=== PATIENT | male | born 1985 | race Caucasian/White ===

== ENCOUNTER 2016-07-03 12:27 | Emergency (ER) | payer OTHER ==
[~2016-07-03] VITALS: Ht 175.3 cm; Wt 67.5 kg
[~2016-07-03 12:27] MED LIST: DIAZ10TA PO
[2016-07-03 12:33] VITALS: TEMP 36.5; Ht 175.3 cm; Wt 67.5 kg
[2016-07-03] MEDS ORDERED: IBUP-1428 PO (12:55)
[2016-07-03] MEDS ORDERED: PRLSR20 PO (12:55)
[2016-07-03] MEDS ORDERED: GABA800T PO (12:55)
[2016-07-03] MEDS ORDERED: TRAM-10 PO (12:58)
[2016-07-03 13:11] VITALS: BP 140/79; PULSE 90; O2SAT 99
[2016-07-03] MEDS ORDERED: ACET-749 PO (13:12)
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
== END 2016-07-03 13:12 | disposition home or self-care (01) ==
LOC: C.EDB 12:28 → C.EDD 13:12
DX: M54.12 Radiculopathy, cervical region (principal); M50.20 Other cervical disc displacement, unspecified cervical region

== ENCOUNTER 2016-10-27 13:08 | Emergency (ER) | payer OTHER ==
[~2016-10-27] VITALS: Ht 175.3 cm; Wt 64.5 kg
[~2016-10-27 13:08] MED LIST changes: +ACET-749 PO; -DIAZ10TA PO; +GABA800T PO; +IBUP-1428 PO; +PRLSR20 PO
[2016-10-27 13:10] VITALS: TEMP 37.1; Ht 175.3 cm; Wt 64.5 kg
[2016-10-27] MEDS ORDERED: HYDROCODONE/ACETAMOPHEN 5/325MG TAB PO STA (13:26)
--- NOTE | 2016-10-27 13:55 | EMERGENCY ROOM VISIT NOTE ---
ED Visit Note First contact with patient: 13:15 CHIEF COMPLAINT: Right wrist pain HISTORY OF PRESENT ILLNESS: This 30-year-old male presents the ER with chief complaint of right wrist pain that radiates into his thumb. The patient states that he had carpal tunnel surgery performed on August [address] Patel. He had his initial follow-up with Dr. Patel and was given exercises to do. A few days after his follow-up he started getting more severe pain just medial to the thenar eminence and radiation into the thumb. The patient states it hurts to squeeze anything grain picker anything or to move his thumb. Since his surgery his insurance has changed to [employer] under [email or web address]. He called to get an appointment and was told that they did not take his insurance and that he would have to pay a large amount for an office visit. The patient also states he does not have a family physician. He has been taking ibuprofen with Prilosec since he had stomach problems. He states the pain keeps him up at night. REVIEW OF SYSTEMS: 6 system review was performed and was negative unless stated otherwise in history of present illness. PMH: Recent right carpal tunnel surgery, shoulder surgery, appendectomy, Achilles tendon surgery, anxiety SOCIAL HISTORY: Patient lives with his . The patient denies any tobacco or alcohol use. PHYSICAL EXAM: Vital Signs: Were reviewed Reviewed Nurse's notes. GEN.: 30-year -old white male appears in no acute distress. MENTAL Status: Alert and oriented 3. RIGHT WRIST: No gross bony deformity noted. No erythema or edema noted. There is a scar consistent with recent carpal tunnel surgery. The patient has severe tenderness to palpation over the area of the scar. He is unable to oppose his thumb to the third through fifth fingers. Remelter strength is 1 out of 5. EMERGENCY DEPARTMENT COURSE: The patient was evaluated. The patient was given [place] 5/325 mg one tablet by mouth for pain. I spoke with the casey saw operator who is going to contract [facility]. The casey saw operator spoke with [facility] and they are in network with the patient's insurance and therefore she said an appointment for the patient for me fourth at [address] Herr. The patient was informed and was happy with treatment plan. The patient was discharged home in stable condition. DIAGNOSIS: Postop pain right carpal tunnel surgery DISCHARGE INSTRUCTIONS AND TREATMENT: Take [place] as needed for pain. Do not drive while taking the [place]. Follow-up with Dr. Patel on October 29 at 9:20 AM. Problem List Medical Problems: (1) Herniated disc Status: Chronic Surgical Problems: (1) S/P appendectomy Status: Resolved Current/Historical Medications No Active Prescriptions or Reported Meds Allergies Coded Allergies: Diphenhydramine (Unverified Allergy, Unknown, [facility], 10/27/16) Vital Signs Date Time Temp Pulse Resp B/P Pulse Ox O2 Delivery O2 Flow Rate FiO2 10/27/16 13:10 37.1 133 20 133/84 96 Room Air Medications Administered Medications (Trade) Dose Ordered Sig/Humberto Route Start Time Stop Time Status Last Admin Dose Admin Acetaminophen/ Hydrocodone Bitart ([place] 5/325 Tab) 1 tab NOW STAT PO 10/27/16 13:26 10/27/16 13:27 DC 10/27/16 13:36 1 TAB Departure Information Prescriptions No Active Prescriptions or Reported Meds Referrals No Doctor, Assigned (PCP) Patient Instructions [facility]
[2016-10-27] MEDS ORDERED: HYDR-5688 PO (13:56)
[2016-10-27 14:06] VITALS: BP 125/94; PULSE 108; O2SAT 98
[2016-10-27] MEDS ORDERED: GABA-113 PO (22:39)
[2016-10-27] MEDS ORDERED: DIAZ10TA PO (22:39)
[2016-10-28] MEDS ORDERED: OMEP20TA PO (11:11)
== END 2016-10-27 14:10 | disposition home or self-care (01) ==
LOC: C.EDB 13:09 → C.EDD 14:10
DX: G89.18 Other acute postprocedural pain (principal); F41.9 Anxiety disorder, unspecified; Z79.899 Other long term (current) drug therapy

== ENCOUNTER 2016-10-27 22:02 | Inpatient (IN) | payer OTHER ==
[~2016-10-27] VITALS: Ht 175.3 cm; Wt 64.2 kg
[~2016-10-27 22:02] MED LIST changes: +HYDR-5688 PO
[2016-10-27] MEDS ORDERED: DIAZ10TA PO (22:39)
[2016-10-27] MEDS ORDERED: GABA-113 PO (22:39)
[2016-10-27 23:02] LABS: BASO % 0.2 %; BASO ABS # 0.01 K/uL (0-0.2); COMPLETE YES; EOS % 1.1 %; HEMATOCRIT 45.4 % (42-52); IG% 0.2 %; LYMPH % 36.2 %; LYMPH ABS # 2.06 K/uL (1.2-3.4); MEAN CORPUSCULAR HEMOGLOBIN 32.2 pg (25-34); MEAN CORPUSCULAR HGB CONC 36.1 g/dl (32-36); MEAN PLATELET VOLUME 9.3 fL (7.4-10.4); MONO % 9.1 %; NEUT % 53.2 %; PLATELET COUNT 250 K/uL (130-400); WHITE BLOOD COUNT 5.69 K/uL (4.8-10.8)
[2016-10-27 23:03] LABS: URINE APPEARANCE CLEAR (CLEAR); URINE BILIRUBIN NEG (NEG); URINE COLOR DK YELLOW; URINE NITRITE NEG (NEG); URINE PH 5.5 (4.5-7.5); URINE SPECIFIC GRAVITY 1.035 (1.000-1.030); UROBILINOGEN NEG (NEG); ZZUR CULT IF INDIC CLEAN CATCH NO
[2016-10-27 23:09] LABS: MANUAL MICROSCOPIC REQUIRED? NO; REVIEW REQ? NO
[2016-10-27 23:21] LABS: ACETAMINOPHEN 20 ug/ml (10-30)
[2016-10-27 23:22] LABS: BUN/CREATININE RATIO 9.8 (10-20); CALCIUM 9.4 mg/dl (8.5-10.1); CREATININE 1.4 mg/dl (0.60-1.40)
[2016-10-27 23:33] LABS: ALB/GLOB RATIO 1.9 (0.9-2); THYROID STIMULATING HORMONE 8.96 uIu/ml (0.300-4.500)
[2016-10-27 23:34] LABS: BENZODIAZEPINE, URINE POS (NEG); COCAINE,URINE NEG (NEG); PHENCYCLIDINE, URINE NEG (NEG)
--- NOTE | 2016-10-27 23:56 | EMERGENCY ROOM VISIT NOTE ---
History Report prepared by Simona: Michelle Newsome Under the Supervision of: Dr. Adolfo Hilliard M.D. First contact with patient: 22:58 Chief Complaint: MENTAL HEALTH EVALUATION Stated Complaint: NERVOUS BREAKDOWN,SELF-HARMING History of Present Illness The patient is a 30 year old male who presents to the Emergency Room with complaints of persistent suicidal ideation starting a few days ago. He reports that his symptoms started after he was arrested in [place] and an ankle monitor was placed. He had informed the police prior to coming to [place]. The patient also complains of anxiety and depression. He has a history of anxiety but denies any prior diagnosis of depression. The patient has been cutting himself on the lower lip. He denies cutting himself anywhere else. He denies any specific plans to commit suicide. He denies any history of suicide attempts. He states that he "just want it to end" and states that "it would be better if I was not here". The patient denies any drug or alcohol use. He denies taking any medications prior to coming to the Emergency Room. He was evaluated in the Emergency Room earlier today and received a [place]. The patient denies fevers, chills, or any other complaints. Source of History: patient Onset: a few days ago Position: other (global) Quality: other (suicidal ideation) Timing: other (persistent) Associated Symptoms: No chills, No fevers Review of Systems See HPI for pertinent positives & negatives. A total of 10 systems reviewed and were otherwise negative. Past Medical & Surgical Medical Problems: (1) Herniated disc Surgical Problems: (1) S/P appendectomy Family History No pertinent family history Social History Smoking Status: Never Smoker Marital Status: Housing Status: lives with significant other Occupation Status: employed Current/Historical Medications Scheduled Gabapentin (Neurontin), 300 MG PO TID Scheduled PRN Diazepam (Valium), 10 MG PO Q8 PRN for prn Allergies Coded Allergies: Diphenhydramine (Unverified Allergy, Unknown, [facility], 10/27/16) Physical Exam Vital Signs Date Time Temp Pulse Resp B/P Pulse Ox O2 Delivery O2 Flow Rate FiO2 10/27/16 22:07 36.6 85 20 141/80 97 Room Air Physical Exam GENERAL: Patient is mildly anxious though sedated appearing. HEENT: No acute trauma, normocephalic atraumatic, mucous membranes moist, no nasal congestion, no scleral icterus. Scabbed over cut of the mid lower lip. NECK: No stridor, no adenopathy, no meningismus, trachea is midline. LUNGS: No dyspnea. Clear to auscultation and equal bilaterally. No wheeze, no rhonchi. HEART: Regular rate and rhythm. No murmurs, rubs, gallops appreciated. ABDOMEN: Soft, nontender, bowel sounds positive, no masses appreciated, no peritonitis. BACK: No midline tenderness, no CVA tenderness EXTREMITIES: Normal motion all extremities, no cyanosis, no edema. Right ankle monitor. NEUROLOGIC: Alert and oriented, no acute motor or sensory deficits, no focal weakness, cranial nerves grossly intact. PSYCHIATRIC: Patient admits to depression, anxiety, and suicidal ideation without specific plan. SKIN: No rash, no jaundice, no diaphoresis. Sunburn of face. Tattoos of forearms and back. Medical Decision & Procedures Laboratory Results 10/27/16 22:40 Red Blood Count 5.10, Mean Corpuscular Volume 89.0, Mean Corpuscular Hemoglobin 32.2, Mean Corpuscular Hemoglobin Concent 36.1, Mean Platelet Volume 9.3, Neutrophils (%) (Auto) 53.2, Lymphocytes (%) (Auto) 36.2, Monocytes (%) (Auto) 9.1, Eosinophils (%) (Auto) 1.1, Basophils (%) (Auto) 0.2, Neutrophils # (Auto) 3.03, Lymphocytes # (Auto) 2.06, Monocytes # (Auto) 0.52, Eosinophils # (Auto) 0.06, Basophils # (Auto) 0.01 10/27/16 22:40 Test 10/27/16 22:30 10/27/16 22:40 Urine Color DK YELLOW Urine Appearance CLEAR (CLEAR) Urine pH 5.5 (4.5-7.5) Urine Specific [place] 1.035 (1.000-1.030) Urine Protein NEG (NEG) Urine Glucose (UA) NEG (NEG) Urine Ketones TRACE (NEG) Urine Occult Blood NEG (NEG) Urine Nitrite NEG (NEG) Urine Bilirubin NEG (NEG) Urine Urobilinogen NEG (NEG) Urine Leukocyte Esterase NEG (NEG) Urine Opiates Screen POS (NEG) Urine Methadone, Qualitative NEG (NEG) Urine Barbiturates NEG (NEG) Urine Phencyclidine (PCP) Level NEG (NEG) Ur Amphetamine/Methamphetamine NEG (NEG) MDMA (Ecstasy) Screen NEG (NEG) Urine Benzodiazepines Screen POS (NEG) Urine Cocaine Metabolite NEG (NEG) Urine Marijuana (THC) NEG (NEG) White Blood Count 5.69 K/uL (4.8-10.8) Red Blood Count 5.10 M/uL (4.7-6.1) Hemoglobin 16.4 g/dL (14.0-18.0) Hematocrit 45.4 % (42-52) Mean Corpuscular Volume 89.0 fL (80-100) Mean Corpuscular Hemoglobin 32.2 pg (25-34) Mean Corpuscular Hemoglobin Concent 36.1 g/dl (32-36) Platelet Count 250 K/uL (130-400) Mean Platelet Volume 9.3 fL (7.4-10.4) Neutrophils (%) (Auto) 53.2 % Lymphocytes (%) (Auto) 36.2 % Monocytes (%) (Auto) 9.1 % Eosinophils (%) (Auto) 1.1 % Basophils (%) (Auto) 0.2 % Neutrophils # (Auto) 3.03 K/uL (1.4-6.5) Lymphocytes # (Auto) 2.06 K/uL (1.2-3.4) Monocytes # (Auto) 0.52 K/uL (0.11-0.59) Eosinophils # (Auto) 0.06 K/uL (0-0.5) Basophils # (Auto) 0.01 K/uL (0-0.2) RDW Standard Deviation 41.5 fL (36.4-46.3) RDW Coefficient of Variation 12.9 % (11.5-14.5) Immature Granulocyte % (Auto) 0.2 % Immature Granulocyte # (Auto) 0.01 K/uL (0.00-0.02) Anion Gap 8.0 mmol/L (3-11) Est Creatinine Clear Calc Drug Dose 70.7 ml/min Estimated GFR () 78.1 Estimated GFR (Non- 67.4 BUN/Creatinine Ratio 9.8 (10-20) Calcium Level 9.4 mg/dl (8.5-10.1) Total Bilirubin 1.0 mg/dl (0.2-1) Aspartate Amino Transf (AST/SGOT) 14 U/L (15-37) Alanine Aminotransferase (ALT/SGPT) 21 U/L (12-78) Alkaline Phosphatase 70 U/L (45-117) Total Protein 8.0 gm/dl (6.4-8.2) Albumin 5.2 gm/dl (3.4-5.0) Globulin 2.8 gm/dl (2.5-4.0) Albumin/Globulin Ratio 1.9 (0.9-2) Thyroid Stimulating Hormone (TSH) 8.960 uIu/ml (0.300-4.500) Salicylates Level < 1.7 mg/dl (2.8-20) Acetaminophen Level 20 ug/ml (10-30) Ethyl Alcohol mg/dL < 3.0 mg/dl (0-3) Laboratory results as reviewed by me. ED Course 2258: The patient was evaluated in room A05. A complete history and physical exam was performed. 1156: I reevaluated the patient who is resting comfortably. He admits to taking Valium. Awaiting [facility] evaluation. 1210: [facility] is evaluating the patient. 1258: Upon reevaluation, the patient is resting comfortably. Discussed results and treatment plan with the patient. He verbalized understanding and agreement with the treatment plan. A decision for inpatient voluntary admission was made. 201 paperwork was signed. The patient will be evaluated for further management by [address] [place] [id number]. Medical Decision Differential: Mood Disorder, Overdose, Infectious, Electrolyte Abnormality, Cardiac, Hepatic, Endocrine, Toxicologic, Neurologic, amongst other pathologies entertained. PDMP: He has multiple narcotic prescriptions over the last few months including 10 [place] from today. 30 yr old male arrives with complaint of suicidal ideation, depression and anxiety. Notes unable to cope with this as outpatient and requesting mental health evaluation. Medically clear and after re-discussing with patient he admits [place] and Valium use in last 24 hours. Tyl level wnl consistent with norco use. He is at risk of harm to self and has already been cutting his lip as outpatient with a knife. [address] to evaluate and agree with 201 admit to their facility. Medically clear and stable. Mild TSH elevation with normal T4. [place] Drug Monitoring Program Search Results: patient reviewed within database Impression Primary Impression: Suicidal ideation Additional Impression: Depression Scribe Attestation The scribe's documentation has been prepared under my direction and personally reviewed by me in its entirety. I confirm that the note above accurately reflects all work, treatment, procedures, and medical decision making performed by me. Departure Information Dispostion Mental Health Acute Care Referrals No Doctor, Assigned (PCP) Patient Instructions [facility] Problem Qualifiers Additional Impression: Depression Depression Type: major depressive disorder Major depression recurrence: single episode Active/Remission status: currently active Major depression episode severity: moderate Qualified Codes: F32.1 - Major depressive disorder , single episode, moderate
[2016-10-28] VITALS (7 sets, daily range): BP systolic 115–135; BP diastolic 75–110; PULSE 82–109; TEMP 36.4–37; O2SAT 99; BMI 20.2
[2016-10-28] MEDS ORDERED: NURSING VERBAL MED ORDER ONE ×2 (01:00→18:30)
[2016-10-28] MEDS ORDERED: MAGNESIUM HYDROXIDE SUSP 30 ML UDC PO PRN (01:30)
[2016-10-28] MEDS ORDERED: SODIUM CHLORIDE 0.65% NA SOLN 45 ML (OCEAN) PRN (01:30)
[2016-10-28] MEDS ORDERED: BISMUTH SUBSALICYLATE PER ML OMNICELL CHARGE PO PRN (01:30)
[2016-10-28] MEDS ORDERED: hydrOXYzine HCL 25 MG TAB PO PRN (01:30)
[2016-10-28] MEDS ORDERED: ALUMINUM/MAGNESIUM SUSP 30 ML UDC PO PRN (01:30)
--- NOTE | 2016-10-28 08:23 | Psychiatric History & Physical ---
History Date of Service October 28, 2016. Identifying Data Kaur Mejias is a 30-year-old male who currently lives in [place] with his , has a history of substance abuse with [place] arrests for drug possession and DUI, untreated anxiety and depression, and was admitted voluntarily after presented to the emergency room for suicidal ideation and self injury by cutting his lip with a knife. Information from the patient is not considered to be reliable. Chief Complaint "I've been suffering from debilitating anxiety for a few years, it's been getting worse as I got older, and yesterday I had a nervous breakdown". History of Present Illness Per review of records, the patient has been seen in our ER several times since moving here in March, for syncope, AMS and pain. On 04/18/17 he was seen for AMS, had been stumbling around the house, was incoherent, having syncopal episodes and weakness, and had been seen at a local urgent care and the emergency room the day prior for the same issue. His drug screen was positive for benzodiazepines, and it was felt that he was intoxicated and recommendations were for admission, but he left the hospital. On his last 2 emergency room visits in June and 10/27/2016, he presented requesting pain medication. He then represented the following day, 10/28/2016, with suicidal ideation after he was pulled over by police, whom he said suspected he was driving under the influence. He changes his story several times about the events that occurred on the day of admission. He initially states that he had a flat tire, and that a police radio dispatcher stopped to help him and "accused me of peeing myself and threatened to arrest me." He then stated that he had spilled some Gatorade on his pants, but that the rn endoscopy thought that he had urinated. He said he then "dissociated, I was suicidal, I just needed it to stop." When asked to explain further, he states that he had pulled over because he spilled Gatorade on his pants and was trying to clean it up, and that a rn endoscopy then "came up behind me, claimed I was drunk and peed my pants." He says he passed the field sobriety test, and the rn endoscopy then called him a total truck and gave him a ride home. He is angry at the police radio dispatcher, stating that he assumed the patient was drunk and "I don't drink at all!" He admits he was taking Valium up to 20mg a day and driving. He says officer told him that he did not catch him this time, but would catch him the next time. When he arrived home, his was there, and he "had a nervous breakdown, it was the last straw. I told my I just can't take this anymore, I work really hard and never get a break." He states that he made multiple suicidal statements, and then picked up a knife that he keeps on his bedside table "in case of a burglar" and used it to cut his lip. He says "it felt good, I like the taste of blood." His then came in the room and saw what he had done, and brought him to the emergency room. He endorses recent stressors of financial problems, not having outpatient mental health care, and says his family "doesn't believe in mental health issues." He states he has been trying to get outpatient mental health services, but has not been able to as his insurance does not cover it, but when asked how he knows this, says he never actually checked with his insurance and "just assumed." He says he makes too much money to be seen at [facility], and can't afford to pay out of pocket for mental health services. He reports a long history since age 15, with chronic worry "about everything," which interferes with his ability to function. He has had daily physical symptoms of anxiety, describes waking up with a "wave of anxiety," at times will hyperventilate, can' t catch his breath, and sweats profusely. Because of his anxiety, he says he "never feels comfortable or confidence." He doesn't feel comfortable leaving the house, so has not been able to do the things he needs to do, and says he just "lies on the couch all day reading." Versus symptoms of depression, including low mood, decreased motivation, decreased energy, and disrupted sleep. He has difficulty both falling and staying asleep, feels he only gets 15 -45 minutes of sleep at a time, and never feels rested. He enjoys exercising, hiking, biking, yoga, and horseback riding. He denies any history of symptoms consistent with endy. 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 He denies symptoms of thought disorder. He denies that he wants to end his life, but does not feel able to go on in his current state. It is very difficult to clarify his benzodiazepine use. He initially states that he has been taking Valium 10 mg twice a day from a physician in [place] and has been on this for months, but then says that he last filled the prescription 6-7 weeks ago, which was only for a one-month supply, so it is not clear how he still has access to this medication. When asked how he still has some left, he states he took himself off of it for a while. He initially denied taking any other benzodiazepines since high school, but when asked about his emergency room visit for DUI arrest on 07/10/2016 which showed both alprazolam and diazepam in his system, he states that he was tapering from one to the other at that time. He also endorses stressors related to his legal issues, which he was not initially forthcoming about. He states he was arrested in [place] almost 2 years ago and charged with possession of controlled substance for prescription medications, which he claims he had prescriptions for, and placed on probation for which he has to wear an ankle bracelet. He initially denied any other history of arrests, and when asked about his DUI from earlier this year, became angry, insisting that it was not a DUI because he was taking prescription medications, and then demanded to leave. He was very resistant to suggestions that he may have a substance abuse problem. He specifically denied when asked if he had been using other benzodiazepines or more than what he had initially reported, and explains that he needs to be forthcoming with his substance use so that we can treat him for any potential withdrawal syndrome. Past Psychiatric History Current OP Treatment: no current treatment Prior OP Treatment: psychiatrist (in middle school diagnosed with anxiety disorder), therapist (years ago) Prior Psych Hospitalizations: none Access to a Gun: No Suicide Attempts: No Past Medication Trials escitalopram - 10mg was ineffective sertraline - 50mg? caused constipation alprazolam as needed in high school diazepam prn 2 years ago after back injury for anxiety and muscle spasms Additional Notes The patient states he is getting Valium from Dr. Eduardo Goodwin in [place]. Past Medical/Surgical History (1) Carpal tunnel syndrome (2) Back fracture s/p carpal tunnel release on right wrist 08/25/16 at [facility] Allergies Allergies: Coded Allergies: Diphenhydramine (Unverified Allergy, Unknown, MANIAC, 10/27/16) Home Medications Scheduled Gabapentin (Neurontin), 300 MG PO TID Omeprazole (Omeprazole), 1 TAB PO DAILY Scheduled PRN Diazepam (Valium), 10 MG PO Q8 PRN for prn Family History No pertinent family history History of Suicide: No History of Substance Abuse: No Psychiatric History: Yes (maternal uncle with anxiety) Alcohol Use Alcohol Use In Past 12 Months: No AUDIT Total Score: 0 Smoking Use Smoking Status: Never Smoker Substance History Patient denies ever using illicit drugs, however he was arrested in [place] for possession of marijuana. He denies abusing prescription medications, although records indicate he has come to the emergency room multiple times requesting pain medication, has been arrested for DUI due to his use of controlled substances, and was seen in the emergency room for altered mental status due to benzodiazepine intoxication. Personal History Lives in: [place] with Childhood: Raised in [place] by both parents. They are now and live in [place]. 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 Relationship History: (x 1 year) Children: None Spiritual Affiliation: Rastafari Legal History: reported (arrested for felony possession of prescription medication/controlled substances in [place] about 2 years ago, and on probation until 03/2017) Psychological Trauma History: Other (None) Review of Systems chronic back and wrist pain. 10 systems reviewed and others negative except as stated above. Examination Physical Examination Physical exam performed in the emergency room was reviewed and accepted for the purposes of this admission. Vital Signs Vital Signs Past 12 Hours Date Time Temp Pulse Resp B/P Pulse Ox O2 Delivery O2 Flow Rate FiO2 10/28/16 06:45 36.4 83 16 119/75 125/85 10/28/16 01:15 36.6 82 16 132/95 10/28/16 01:11 80 16 132/95 99 10/27/16 22:07 36.6 85 20 141/80 97 Room Air Laboratory Results Last 24 Hours Test 10/27/16 22:30 10/27/16 22:40 Urine Color DK YELLOW Urine Appearance CLEAR Urine pH 5.5 Urine Specific [place] 1.035 Urine Protein NEG Urine Glucose (UA) NEG Urine Ketones TRACE Urine Occult Blood NEG Urine Nitrite NEG Urine Bilirubin NEG Urine Urobilinogen NEG Urine Leukocyte Esterase NEG Urine Opiates Screen POS Urine Methadone, Qualitative NEG Urine Barbiturates NEG Urine Phencyclidine (PCP) Level NEG Ur Amphetamine/Methamphetamine NEG MDMA (Ecstasy) Screen NEG Urine Benzodiazepines Screen POS Urine Cocaine Metabolite NEG Urine Marijuana (THC) NEG White Blood Count 5.69 K/uL Red Blood Count 5.10 M/uL Hemoglobin 16.4 g/dL Hematocrit 45.4 % Mean Corpuscular Volume 89.0 fL Mean Corpuscular Hemoglobin 32.2 pg Mean Corpuscular Hemoglobin Concent 36.1 g/dl Platelet Count 250 K/uL Mean Platelet Volume 9.3 fL Neutrophils (%) (Auto) 53.2 % Lymphocytes (%) (Auto) 36.2 % Monocytes (%) (Auto) 9.1 % Eosinophils (%) (Auto) 1.1 % Basophils (%) (Auto) 0.2 % Neutrophils # (Auto) 3.03 K/uL Lymphocytes # (Auto) 2.06 K/uL Monocytes # (Auto) 0.52 K/uL Eosinophils # (Auto) 0.06 K/uL Basophils # (Auto) 0.01 K/uL RDW Standard Deviation 41.5 fL RDW Coefficient of Variation 12.9 % Immature Granulocyte % (Auto) 0.2 % Immature Granulocyte # (Auto) 0.01 K/uL Sodium Level 142 mmol/L Potassium Level 4.0 mmol/L Chloride Level 102 mmol/L Carbon Dioxide Level 32 mmol/L Anion Gap 8.0 mmol/L Blood Urea Nitrogen 14 mg/dl Creatinine 1.40 mg/dl Est Creatinine Clear Calc Drug Dose 70.7 ml/min Estimated GFR () 78.1 Estimated GFR (Non- 67.4 BUN/Creatinine Ratio 9.8 Random Glucose 71 mg/dl Calcium Level 9.4 mg/dl Total Bilirubin 1.0 mg/dl Aspartate Amino Transf (AST/SGOT) 14 U/L Alanine Aminotransferase (ALT/SGPT) 21 U/L Alkaline Phosphatase 70 U/L Total Protein 8.0 gm/dl Albumin 5.2 gm/dl Globulin 2.8 gm/dl Albumin/Globulin Ratio 1.9 Thyroid Stimulating Hormone (TSH) 8.960 uIu/ml Salicylates Level < 1.7 mg/dl Acetaminophen Level 20 ug/ml Ethyl Alcohol mg/dL < 3.0 mg/dl Mental Examination During interview pt is: alert and oriented, other (patient gives inconsistent and conflicting reports, changing his story, and is not reliable) Appearance: appropriately dressed, appropriately groomed Eye contact is: fair Motor behavior is: steady gait & station, no abnormal motor movements Speech: normal in rate, rhythm & volume Affect: anxious Mood is: anxious Thought process: circumstantial Thought content: cognitive distortions (minimizes role of substances) Suicidal thought are: denied (but admits to cutting self yesterday and SI) Homicidal thoughts are: denied Hallucinations: denies auditory, denies visual Cognition: memory grossly intact, attention grossly intact, language grossly intact Intelligence estimated to be: average Insight: impaired Judgement: severely impaired Impression / Recommendations Impression 30-year-old white male with a history of depression and anxiety as well as concerns for prescription medication abuse who presents after an episode with police, who per his report suspected he was driving under the influence, which resulted in worsening anxiety and suicidal ideation with self injury by cutting his lip. He was not forthcoming with respect to his multiple criminal charges for possession of controlled substances and a DUI arrest in June of this year for controlled substance use, and I suspect he is minimizing the extent of his use. We will need to get collateral information from his and outpatient prescribers, monitor him for withdrawal, and will start treatment for his mood and anxiety disorders. Inventory Assets Strengths: , employed, stable housing Risk Factors Assessment Male: Yes : Yes /single/: No Access to guns: No Health problems: Yes Mental Health Diagnoses: Yes Substance use disorders: Yes Previous attempt: No Previous psychiatric stay: No Hopelessness: Yes Smoker: No Protective Factors Assessment : Yes Responsible for young children: No Employed: Yes Stable relationships: Yes Supportive family: No Good rapport with provider: No Recommendations (1) Suicidal ideation Every 15 minute checks for safety Work on healthy coping skills and discharge safety plan Would advise that he not of access to controlled substances given his addictions issues, and that all medications in the home be locked Would recommend that he not drive, given his multiple presentations with altered mental status and DUI. 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 (2) Panic disorder with agoraphobia We discussed first line treatment, which is an SSRI antidepressant, and he requested something with a low risk of sexual dysfunction, so opted for fluoxetine. Start 20 mg daily, and titrate upwards as tolerated. He had been on gabapentin as an outpatient, which is a good choice given his addictions issues. We can resume his home dose once he has completed the gabapentin withdrawal protocol. (3) Depression Start fluoxetine as above. Educate the patient about his diagnoses and the recommended treatment. Refer for outpatient psychiatric follow-up and therapy. (4) Benzodiazepine dependence There are many red flags for misuse of prescription medications, including multiple arrests in criminal charges (felony possession, possession of marijuana , and a recent DUI while on prescription medications), an emergency room visit for altered mental status thought to be due to benzodiazepine intoxication, and his lack of honesty about these issues. I strongly suspect he is minimizing his substance use, but even if he is taking the diazepam as prescribed, it is not a good choice for him given his DUI, episodes of altered mental status, and ongoing severe anxiety. We will therefore taper off of it while here, by decreasing to 5 mg twice a day and initiating AWSS protocol. Would recommend the patient not drive until he is tapered off of benzodiazepines and all other controlled substances. (5) Back fracture Patient reports a history of back injury, will request records from his PCP, Dr. Eduardo Goodwin in [place], who is prescribing benzodiazepines. Nursing has are to contact his office to confirm the diazepam dose, and inform them of his admission. We will need to coordinate care with him prior to discharge. Referral for local PCP. (6) Carpal tunnel syndrome Coordinate care with Dr. Patel, the orthopedist to performed his procedure. The patient states he is planning to follow up with him, as he continues to have pain. Called his office and spoke with his nurse, who states they last prescribed hydrocodone/acetaminophen at the beginning of August. CPT Code Initial Hospital Care: 54353 Problem Qualifiers (1) Depression: Depression Type: major depressive disorder Major depression recurrence: single episode Active/Remission status: currently active Major depression episode severity: severe Psychotic features: without psychotic features Qualified Codes: F32.2 - Major depressive disorder, single episode, severe without psychotic features
[2016-10-28] MEDS: hydrOXYzine HCL 25 MG TAB PO PRN ×2 (10:41→15:12)
[2016-10-28] MEDS ORDERED: OMEP20TA PO (11:11)
[2016-10-28] MEDS ORDERED: FLUOXETINE HCL 20 MG CAP PO ONE (12:00)
[2016-10-28] MEDS ORDERED: LORAZEPAM 1 MG TAB PO PRN (13:15)
[2016-10-28] MEDS ORDERED: GABAPENTIN 600 MG TAB PO ONE (14:00)
[2016-10-28] MEDS ORDERED: GABAPENTIN 300 MG CAP PO SCH (14:00)
[2016-10-28] MEDS: ACETAMINOPHEN 325 MG TAB PO PRN (15:13)
--- NOTE | 2016-10-28 18:32 | Psych Management Progress Note ---
Psychiatry Miscellaneous Date of Service: October 28, 2016. etl consultant provider contacted re: slurring of speech, unsteady gait "loopiness" . 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 Ordered on admission since not immune mediated allergy and preferred over controlled substance prn. Reviewed that also received loading dose of Neurontin this pm according to hospital withdrawal protocol and ordered benzo taper. Directed staff to repeat urine tox and check room as substance abuse hx. Gluc check and O2 sat in addition to orthostatic vitals. Reviewed med orders for hs. Will hold Valium tonight. D/C Vistaril. Falls precautions until resolves.
[2016-10-28 19:14] LABS: BENZODIAZEPINE, URINE POS (NEG); COCAINE,URINE NEG (NEG); PHENCYCLIDINE, URINE NEG (NEG)
[2016-10-28] MEDS: GABAPENTIN 600 MG TAB PO SCH (20:43)
[2016-10-28] MEDS: IBUPROFEN 800 MG TAB PO PRN (20:53)
[2016-10-28] MEDS ORDERED: DIAZEPAM 5MG TAB PO SCH (22:00)
[2016-10-29] VITALS (8 sets, daily range): BP systolic 123–163; BP diastolic 78–107; PULSE 69–115; TEMP 36.5–37.5; Ht 175.3 cm; Wt 64.2 kg
[2016-10-29] MEDS: GABAPENTIN 600 MG TAB PO SCH ×3 (06:04→21:14)
[2016-10-29] MEDS ORDERED: LORAZEPAM 1 MG TAB PO PRN (08:00)
[2016-10-29] MEDS: PANTOprazole SOD 40 MG TAB PO SCH (08:04)
[2016-10-29] MEDS: FLUOXETINE HCL 20 MG CAP PO SCH (08:04)
[2016-10-29] MEDS: ACETAMINOPHEN 325 MG TAB PO PRN ×2 (08:06→18:21)
[2016-10-29] MEDS ORDERED: PANTOprazole SOD 40 MG TAB PO SCH (09:00)
[2016-10-29] MEDS: LORAZEPAM 1 MG TAB PO PRN ×5 (09:49→18:21)
--- NOTE | 2016-10-29 10:30 | Psychiatric Progress Notes ---
Psychiatric Progress Note Date of Service October 29, 2016. Notes Return phone call from patient's orthopedist, Marylou Laguerre. She states patient did not follow up after his carpal tunnel surgery as recommended, but did call in multiple times requesting additional opiate pain meds. They do not plan on prescribing further opiates or other controlled substances. He missed his appointment with them today so it will need to be rescheduled prior to discharge.
--- NOTE | 2016-10-29 10:36 | Psychiatric Progress Notes ---
Progress Note Date of Service October 29, 2016. Interval History 30 yo male admitted voluntarily on 10/28/16 with depression, anxiety and suicidal ideation in the context of chronic mental illness and substance abuse Chief Complaint "Not very good. ". Subjective Patient was seen & assessed interval progress reviewed with Treatment Team. The patient says that he does not feel well today with chills having kept him up last night. He also had one episode of visual disturbance this AM, thinking that he saw that chair move. Her mood is "not very good" because he feels unwell physically. he has scored 3 times on the AWSS, requiring ativan. Last evening staff observed him to be appearing altered, with slurred speech after receiving prn vistaril for anxiety. He talks about his history with anxiety, saying that there are times when he is so anxious that he doesn't want to leave the house. He feels that his doesn't understand this because "She's an overachiever" and doesn't let anything slow her down. He has an uncle who he describes as agoraphobic, unable even to attend their wedding a year ago. He denies SI today, but reports racing worried thoughts He denies using any opiates that were not prescribed, and says that he was taking 20 mg Valium daily and occasionally and extra 10 mg pill if he was having a bad day. Review of Systems Constitutional: + chills, + fatigue ENT: No dental problems, No hearing loss, No nasal symptoms, No problem reported, No sore throat, No tinnitus, No trouble swallowing, No unusual epistaxis Respiratory: No cough, No dyspnea at rest, No dyspnea on exertion, No hemoptysis, No problem reported, No shortness of breath, No sputum, No wheezing Cardiovascular: No PND, No chest pain, No claudication, No edema, No orthopnea , No palpitations, No problem reported Abdomen: No GI bleeding, No constipation, No diarrhea, No nausea, No pain, No problem reported, No vomiting Musculoskeletal: No calf pain, No joint pain, No muscle pain, No problem reported, No swelling Neurologic: No balance problems, No memory loss, No numbness/tingling, No paralysis, No problem reported, No vertigo, No weakness Psychiatric: + anxiety, + depression symptoms, + insomnia Integumentary: No bleeding, No color change, No itch, No new/changing skin lesions, No problem reported, No rash Sleep Information Total Hours of Sleep: 8.00 Meal Information Percent of Breakfast Consumed: 70 Percent of Lunch Consumed: 0 Percent of Dinner Consumed: 100 Mental Status Exam During interview pt is: alert and oriented, cooperative Appearance: appropriately dressed, appropriately groomed Eye contact is: good Motor behavior is: steady gait & station, no abnormal motor movements Speech: normal in rate, rhythm & volume Affect: anxious Mood is: depressed, anxious Thought process: goal directed Thought content: cognitive distortions (minimizes role of substances), reality based without delusions Suicidal thought are: denied Homicidal thoughts are: denied Hallucinations: denies auditory, denies visual Cognition: memory grossly intact, attention grossly intact, language grossly intact Intelligence estimated to be: average Insight: impaired Judgement: severely impaired Impression Kaur is adjusting to the unit. He remains depressed and anxious and appears to be going through withdrawal from Benzo's and likely opiates. Valium DC'd last night due to appearing altered, and in view of hx of DUI appearing altered on valium, will switch to Klonopin 1 mg. BID with intended taper. Dr. Morales has been in contact with her orthopedic providers who confirm that he has frequently called their office for more pain meds and they will now flag his chart. He is not to the point of admitting that he has a problem, but we will work with him on this. He is tolerating the prozac without side effect and so will continue current dose. Family meeting is schedule with his today. Plan (1) Suicidal ideation Every 15 minute checks for safety Work on healthy coping skills and discharge safety plan Would advise that he not of access to controlled substances given his addictions issues, and that all medications in the home be locked Would recommend that he not drive, given his multiple presentations with altered mental status and DUI. 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 (2) Panic disorder with agoraphobia We discussed first line treatment, which is an SSRI antidepressant, and he requested something with a low risk of sexual dysfunction, so opted for fluoxetine. Start 20 mg daily, and titrate upwards as tolerated. He had been on gabapentin as an outpatient, which is a good choice given his addictions issues. We can resume his home dose once he has completed the gabapentin withdrawal protocol. (3) Depression Start fluoxetine as above. Educate the patient about his diagnoses and the recommended treatment. Refer for outpatient psychiatric follow-up and therapy. 10/29 - Continue prozac - Family meeting with by phone today - Assist the patient to learn and utilize additional healthy coping strategies (4) Benzodiazepine dependence There are many red flags for misuse of prescription medications, including multiple arrests in criminal charges (felony possession, possession of marijuana , and a recent DUI while on prescription medications), an emergency room visit for altered mental status thought to be due to benzodiazepine intoxication, and his lack of honesty about these issues. I strongly suspect he is minimizing his substance use, but even if he is taking the diazepam as prescribed, it is not a good choice for him given his DUI, episodes of altered mental status, and ongoing severe anxiety. We will therefore taper off of it while here, by decreasing to 5 mg twice a day and initiating AWSS protocol. Would recommend the patient not drive until he is tapered off of benzodiazepines and all other controlled substances. 10/29 - Continue AWSS - Cross taper to Klonopin 1 mg. BID to prevent withdrawal seizures, with intent to taper off. - Will need to coordinate with all prescribers who have been providing controlled substances due to his hx of DUI's and impairment (5) Back fracture Patient reports a history of back injury, will request records from his PCP, Dr. Eduardo Goodwin in [place], who is prescribing benzodiazepines. Nursing has are to contact his office to confirm the diazepam dose, and inform them of his admission. We will need to coordinate care with him prior to discharge. Referral for local PCP. (6) Carpal tunnel syndrome Coordinate care with Dr. Patel, the orthopedist to performed his procedure. The patient states he is planning to follow up with him, as he continues to have pain. Called his office and spoke with his nurse, who states they last prescribed hydrocodone/acetaminophen at the beginning of August. Discharge / Aftercare Planning Therapist: Name: michael Head Of Academic Technology: Name: michael Visit Code E&M Code: 37756 Inventory Assets Strengths: , employed, stable housing Risk Factors Assessment Male: Yes : Yes /single/: No Health problems: Yes Mental Health Diagnoses: Yes Substance use disorders: Yes Previous attempt: No Previous psychiatric stay: No Hopelessness: Yes Smoker: No Protective Factors Assessment : Yes Responsible for young children: No Employed: Yes Stable relationships: Yes Supportive family: No Good rapport with provider: No Data Vital Signs Last 24 Hrs: Date Time Temp Pulse Resp B/P Pulse Ox O2 Delivery O2 Flow Rate FiO2 10/29/16 09:07 36.8 73 18 134/94 69 10/29/16 06:52 36.8 73 18 123/78 69 134/94 10/28/16 20:49 36.9 102 16 135/110 10/28/16 18:18 90 16 131/87 10/28/16 17:13 36.9 106 16 115/80 10/28/16 13:49 37.0 109 18 121/89 Meds Administered Last 24 Hrs: Meds Administered (Past 24Hrs) Medications (Trade) Dose Ordered Sig/Humberto Route Start Time Stop Time Status Last Admin Dose Admin Acetaminophen (Tylenol Tab) 650 mg Q4H PRN PO 10/28/16 01:30 11/27/16 01:29 10/29/16 08:06 650 MG Al Hydroxide/Mg Hydroxide (Maalox Susp) 30 ml Q4H PRN PO 10/28/16 01:30 11/27/16 01:29 10/28/16 20:52 30 ML Hydroxyzine HCl (Vistaril Tab) 50 mg HSZ PRN PO 10/28/16 01:30 10/28/16 18:26 DC 10/28/16 01:43 50 MG Hydroxyzine HCl (Vistaril Tab) 25 mg Q4H PRN PO 10/28/16 01:30 10/28/16 18:26 DC 10/28/16 15:12 25 MG Gabapentin (Neurontin Cap) 300 mg TID PO 10/28/16 14:00 10/28/16 14:00 DC 10/28/16 12:40 300 MG Ibuprofen (Motrin Tab) 800 mg TID PRN PO 10/28/16 11:15 11/27/16 11:14 10/28/16 20:53 800 MG Fluoxetine HCl (Prozac Cap) 20 mg QAM PO 10/29/16 09:00 11/28/16 08:59 10/29/16 08:04 20 MG Fluoxetine HCl (Prozac Cap) 20 mg 1200 ONCE PO 10/28/16 12:00 10/28/16 12:01 DC 10/28/16 12:06 20 MG Lorazepam (Ativan Tab) 1 mg ONE PRN PO 10/28/16 13:15 10/28/16 20:53 DC 10/28/16 20:52 1 MG Gabapentin (Neurontin Tab) 1,200 mg 1400 ONCE PO 10/28/16 14:00 10/28/16 14:01 DC 10/28/16 14:18 1,200 MG Gabapentin (Neurontin Tab) 600 mg 0600,2000 PO 10/28/16 20:00 10/29/16 06:01 DC 10/29/16 06:04 600 MG Pantoprazole Sodium (Protonix Tab) 40 mg DAILY PO 10/29/16 09:00 11/28/16 08:59 10/29/16 08:04 40 MG Lorazepam (Ativan Tab) 1 mg ONE PRN PO 10/29/16 08:00 10/29/16 08:03 DC 10/29/16 08:03 1 MG Lorazepam (Ativan Tab) PRN Dosing -Active Protocol UD PRN PO 10/29/16 09:45 11/28/16 09:44 10/29/16 09:49 2 MG Lab Results Last 24 Hrs: Last 24 Hours Test 10/28/16 18:17 10/28/16 18:45 Bedside Glucose 146 mg/dl Urine Opiates Screen POS Urine Methadone, Qualitative NEG Urine Barbiturates NEG Urine Phencyclidine (PCP) Level NEG Ur Amphetamine/Methamphetamine NEG MDMA (Ecstasy) Screen NEG Urine Benzodiazepines Screen POS Urine Cocaine Metabolite NEG Urine Marijuana (THC) NEG Problem Qualifiers (1) Depression: Depression Type: major depressive disorder Major depression recurrence: single episode Active/Remission status: currently active Major depression episode severity: severe Psychotic features: without psychotic features Qualified Codes: F32.2 - Major depressive disorder, single episode, severe without psychotic features
[2016-10-29 11:22] LABS: THYROID STIMULATING HORMONE 0.829 uIu/ml (0.300-4.500)
[2016-10-29] MEDS ORDERED: CLONAZEPAM 1 MG TAB PO ONE (11:30)
[2016-10-29] MEDS: IBUPROFEN 800 MG TAB PO PRN (13:56)
--- NOTE | 2016-10-29 18:49 | Psych Management Progress Note ---
Psychiatry Miscellaneous Date of Service: October 29, 2016. reviewed VS as nursing notified of 2 doses of 2 mg Ativan based on protocol. Schedule for Klonopin this hs. Staff concerned about opiate withdrawal as well as has been persistently tachy today. Clonidine 0.1 mg q4 hr ordered as prn with hold parameters. Will not order full detox protocol at this time given that benzo withdrawal likely primary.
[2016-10-29] MEDS: CLONIDINE HCL 0.1 MG TAB PO PRN (19:34)
[2016-10-29] MEDS: CLONAZEPAM 1 MG TAB PO SCH (21:15)
[2016-10-30] VITALS (8 sets, daily range): BP systolic 113–147; BP diastolic 83–99; PULSE 74–102; TEMP 36.4–37
[2016-10-30] MEDS: GABAPENTIN 600 MG TAB PO SCH ×2 (06:04→17:25)
[2016-10-30] MEDS: CLONAZEPAM 1 MG TAB PO SCH ×2 (08:25→21:17)
[2016-10-30] MEDS: CLONIDINE HCL 0.1 MG TAB PO PRN ×2 (08:25→13:27)
[2016-10-30] MEDS: FLUOXETINE HCL 20 MG CAP PO SCH (08:25)
[2016-10-30] MEDS: PANTOprazole SOD 40 MG TAB PO SCH (08:25)
[2016-10-30] MEDS: IBUPROFEN 800 MG TAB PO PRN ×2 (09:34→19:22)
[2016-10-30] MEDS: LORAZEPAM 1 MG TAB PO PRN (10:05)
[2016-10-30] MEDS: ACETAMINOPHEN 325 MG TAB PO PRN (12:27)
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
[2016-10-31] VITALS (7 sets, daily range): BP systolic 127–150; BP diastolic 80–99; PULSE 75–102; TEMP 36.6–36.9
[2016-10-31] MEDS: GABAPENTIN 600 MG TAB PO SCH (06:47)
[2016-10-31] MEDS: ACETAMINOPHEN 325 MG TAB PO PRN (07:06)
[2016-10-31] MEDS: CLONAZEPAM 1 MG TAB PO SCH ×2 (07:48→20:56)
[2016-10-31] MEDS: FLUOXETINE HCL 20 MG CAP PO SCH (07:48)
[2016-10-31] MEDS: PANTOprazole SOD 40 MG TAB PO SCH (07:48)
--- NOTE | 2016-10-31 09:50 | Psych Management Progress Note ---
Psychiatry Miscellaneous Date of Service: October 31, 2016. Patient seen, MS assessed. Rates mood as low but appears spontaneous/bright in interactions. Wants to exercise today (walk laps). Cooperative with care and treatment plan as outlined by VAL.
--- NOTE | 2016-10-31 11:49 | Psychiatric Progress Notes ---
Progress Note Date of Service October 31, 2016. Interval History 30 yo male admitted voluntarily on 10/28/16 with depression, anxiety and suicidal ideation in the context of chronic mental illness and substance abuse Chief Complaint "OK". Subjective Patient was seen & assessed interval progress reviewed with Treatment Team. The patient says that he is doing "OK", but continues with anxiety and panic. He woke before 0300 last night with a nightmare, in panic and could not get back to sleep. He feels tired today, but denies chills, NVD or gooseflesh. He experiences heart racing with his anxiety. He says that his SI are "gone" and he is hopeful to be discharged soon. He and his are committed to him getting aftercare and he has an appt with [facility] for therapy next week. If he is not approved for MA, his mother has said that she will pay out of pocket for his initial psychiatric intake and he and his may be able to manage the follow up appts. Review of Systems Constitutional: + fatigue ENT: No dental problems, No hearing loss, No nasal symptoms, No problem reported, No sore throat, No tinnitus, No trouble swallowing, No unusual epistaxis Respiratory: + shortness of breath (wtih anxiety) Cardiovascular: + chest pain (with anxiety) Abdomen: No GI bleeding, No constipation, No diarrhea, No nausea, No pain, No problem reported, No vomiting Musculoskeletal: No calf pain, No joint pain, No muscle pain, No problem reported, No swelling Neurologic: No balance problems, No memory loss, No numbness/tingling, No paralysis, No problem reported, No vertigo, No weakness Psychiatric: + depression symptoms (improving), + problem reported (nightmares) Integumentary: No bleeding, No color change, No itch, No new/changing skin lesions, No problem reported, No rash Sleep Information Total Hours of Sleep: 3.25 Meal Information Percent of Breakfast Consumed: 100 Percent of Lunch Consumed: 50 Percent of Dinner Consumed: 50 Mental Status Exam During interview pt is: alert and oriented, cooperative Appearance: appropriately dressed, appropriately groomed Eye contact is: good Motor behavior is: steady gait & station, no abnormal motor movements Speech: normal in rate, rhythm & volume Affect: blunted, anxious Mood is: depressed, anxious Thought process: goal directed Thought content: cognitive distortions (minimizes role of substances), reality based without delusions Suicidal thought are: denied Homicidal thoughts are: denied Hallucinations: denies auditory, denies visual Cognition: memory grossly intact, attention grossly intact, language grossly intact Intelligence estimated to be: average Insight: limited Judgement: limited Impression Mild improvement physically, not having chills. Anxiety remains high and still having nightmares. Will start Prazosin 1 mg. HS for nightmares. R/B/A reviewed and accepted including the risk for hypotension. . Will also start scheduled neurontin 300 mg. TID for anxiety and benefit to any remaining withdrawal symptoms. Will also continue titration of prozac to 40 mg. daily Plan (1) Suicidal ideation Every 15 minute checks for safety Work on healthy coping skills and discharge safety plan Would advise that he not of access to controlled substances given his addictions issues, and that all medications in the home be locked Would recommend that he not drive, given his multiple presentations with altered mental status and DUI. He has a [employer] driver's license. (2) Panic disorder with agoraphobia We discussed first line treatment, which is an SSRI antidepressant, and he requested something with a low risk of sexual dysfunction, so opted for fluoxetine. Start 20 mg daily, and titrate upwards as tolerated. He had been on gabapentin as an outpatient, which is a good choice given his addictions issues. We can resume his home dose once he has completed the gabapentin withdrawal protocol. 5 - Continue prozac 20 mg. - Explore mindfulness techniques /6 - Increase Prozac to 40 mg. daily - Start neurontin 300 mg. TID for anxiety (3) Depression Start fluoxetine as above. Educate the patient about his diagnoses and the recommended treatment. Refer for outpatient psychiatric follow-up and therapy. 10/29 - Continue prozac - Family meeting with by phone today - Assist the patient to learn and utilize additional healthy coping strategies (4) Benzodiazepine dependence There are many red flags for misuse of prescription medications, including multiple arrests in criminal charges (felony possession, possession of marijuana , and a recent DUI while on prescription medications), an emergency room visit for altered mental status thought to be due to benzodiazepine intoxication, and his lack of honesty about these issues. I strongly suspect he is minimizing his substance use, but even if he is taking the diazepam as prescribed, it is not a good choice for him given his DUI, episodes of altered mental status, and ongoing severe anxiety. We will therefore taper off of it while here, by decreasing to 5 mg twice a day and initiating AWSS protocol. Would recommend the patient not drive until he is tapered off of benzodiazepines and all other controlled substances. 10/29 - Continue AWSS - Cross taper to Klonopin 1 mg. BID to prevent withdrawal seizures, with intent to taper off. - Will need to coordinate with all prescribers who have been providing controlled substances due to his hx of DUI's and impairment (5) Back fracture Patient reports a history of back injury, will request records from his PCP, Dr. Eduardo Goodwin in [place], who is prescribing benzodiazepines. Nursing has are to contact his office to confirm the diazepam dose, and inform them of his admission. We will need to coordinate care with him prior to discharge. Referral for local PCP. (6) Carpal tunnel syndrome Coordinate care with Dr. Patel, the orthopedist to performed his procedure. The patient states he is planning to follow up with him, as he continues to have pain. Called his office and spoke with his nurse, who states they last prescribed hydrocodone/acetaminophen at the beginning of August. Discharge / Aftercare Planning Psychiatrist: Name: Pending Appointment Notes: calls placed to find reduced fee psychiatric services Therapist: Name: Earle Johnston Phone Number: [phone] Date of Appointment: November 03, 2016 Time of Appointment: 1030 Appointment Notes: Belem Chan PA Regenerator Operator: Name: michael Visit Code E&M Code: 09551 Inventory Assets Strengths: , employed, stable housing Risk Factors Assessment Male: Yes : Yes /single/: No Health problems: Yes Mental Health Diagnoses: Yes Substance use disorders: Yes Previous attempt: No Previous psychiatric stay: No Hopelessness: Yes Smoker: No Protective Factors Assessment : Yes Responsible for young children: No Employed: Yes Stable relationships: Yes Supportive family: No Good rapport with provider: No Data Vital Signs Last 24 Hrs: Date Time Temp Pulse Resp B/P Pulse Ox O2 Delivery O2 Flow Rate FiO2 10/31/16 08:45 36.6 102 16 133/89 90 10/31/16 07:50 36.6 102 16 133/89 10/31/16 06:51 36.8 76 16 136/86 90 127/80 10/30/16 20:55 36.6 77 18 129/95 10/30/16 18:38 81 18 119/83 10/30/16 16:06 36.8 75 16 113/85 10/30/16 13:28 94 18 134/84 10/30/16 12:32 36.7 93 16 147/99 Meds Administered Last 24 Hrs: Meds Administered (Past 24Hrs) Medications (Trade) Dose Ordered Sig/Humberto Route Start Time Stop Time Status Last Admin Dose Admin Gabapentin (Neurontin Tab) 600 mg Q8H PO 10/29/16 14:00 10/30/16 06:01 DC 10/30/16 06:04 600 MG Gabapentin (Neurontin Tab) 600 mg Q12H PO 10/30/16 18:00 10/31/16 06:01 DC 10/31/16 06:47 600 MG Clonazepam (Klonopin Tab) 1 mg BID PO 10/29/16 22:00 11/28/16 21:59 10/31/16 07:48 1 MG Clonidine HCl (Catapres Tab) 0.1 mg Q4 PRN PO 10/29/16 18:45 11/28/16 18:44 10/30/16 13:27 0.1 MG Lab Results Last 24 Hrs: 10/27/16 22:40 Red Blood Count 5.10, Mean Corpuscular Volume 89.0, Mean Corpuscular Hemoglobin 32.2, Mean Corpuscular Hemoglobin Concent 36.1, Mean Platelet Volume 9.3, Neutrophils (%) (Auto) 53.2, Lymphocytes (%) (Auto) 36.2, Monocytes (%) (Auto) 9.1, Eosinophils (%) (Auto) 1.1, Basophils (%) (Auto) 0.2, Neutrophils # (Auto) 3.03, Lymphocytes # (Auto) 2.06, Monocytes # (Auto) 0.52, Eosinophils # (Auto) 0.06, Basophils # (Auto) 0.01 10/27/16 22:40 Test 10/27/16 22:30 10/27/16 22:40 10/28/16 18:17 10/28/16 18:45 Urine Color DK YELLOW Urine Appearance CLEAR (CLEAR) Urine pH 5.5 (4.5-7.5) Urine Specific Michael 1.035 (1.000-1.030) Urine Protein NEG (NEG) Urine Glucose (UA) NEG (NEG) Urine Ketones TRACE (NEG) Urine Occult Blood NEG (NEG) Urine Nitrite NEG (NEG) Urine Bilirubin NEG (NEG) Urine Urobilinogen NEG (NEG) Urine Leukocyte Esterase NEG (NEG) White Blood Count 5.69 K/uL (4.8-10.8) Red Blood Count 5.10 M/uL (4.7-6.1) Hemoglobin 16.4 g/dL (14.0-18.0) Hematocrit 45.4 % (42-52) Mean Corpuscular Volume 89.0 fL (80-100) Mean Corpuscular Hemoglobin 32.2 pg (25-34) Mean Corpuscular Hemoglobin Concent 36.1 g/dl (32-36) Platelet Count 250 K/uL (130-400) Mean Platelet Volume 9.3 fL (7.4-10.4) Neutrophils (%) (Auto) 53.2 % Lymphocytes (%) (Auto) 36.2 % Monocytes (%) (Auto) 9.1 % Eosinophils (%) (Auto) 1.1 % Basophils (%) (Auto) 0.2 % Neutrophils # (Auto) 3.03 K/uL (1.4-6.5) Lymphocytes # (Auto) 2.06 K/uL (1.2-3.4) Monocytes # (Auto) 0.52 K/uL (0.11-0.59) Eosinophils # (Auto) 0.06 K/uL (0-0.5) Basophils # (Auto) 0.01 K/uL (0-0.2) RDW Standard Deviation 41.5 fL (36.4-46.3) RDW Coefficient of Variation 12.9 % (11.5-14.5) Immature Granulocyte % (Auto) 0.2 % Immature Granulocyte # (Auto) 0.01 K/uL (0.00-0.02) Anion Gap 8.0 mmol/L (3-11) Est Creatinine Clear Calc Drug Dose 70.7 ml/min Estimated GFR () 78.1 Estimated GFR (Non- 67.4 BUN/Creatinine Ratio 9.8 (10-20) Calcium Level 9.4 mg/dl (8.5-10.1) Total Bilirubin 1.0 mg/dl (0.2-1) Aspartate Amino Transf (AST/SGOT) 14 U/L (15-37) Alanine Aminotransferase (ALT/SGPT) 21 U/L (12-78) Alkaline Phosphatase 70 U/L (45-117) Total Protein 8.0 gm/dl (6.4-8.2) Albumin 5.2 gm/dl (3.4-5.0) Globulin 2.8 gm/dl (2.5-4.0) Albumin/Globulin Ratio 1.9 (0.9-2) Salicylates Level < 1.7 mg/dl (2.8-20) Acetaminophen Level 20 ug/ml (10-30) Ethyl Alcohol mg/dL < 3.0 mg/dl (0-3) Bedside Glucose 146 mg/dl (70-99) Urine Opiates Screen POS (NEG) Urine Methadone, Qualitative NEG (NEG) Urine Barbiturates NEG (NEG) Urine Phencyclidine (PCP) Level NEG (NEG) Ur Amphetamine/Methamphetamine NEG (NEG) MDMA (Ecstasy) Screen NEG (NEG) Urine Benzodiazepines Screen POS (NEG) Urine Cocaine Metabolite NEG (NEG) Urine Marijuana (THC) NEG (NEG) Test 10/29/16 10:29 Thyroid Stimulating Hormone (TSH) 0.829 uIu/ml (0.300-4.500) Free Thyroxine 0.92 ng/dl (0.80-1.60) Problem Qualifiers (1) Depression: Depression Type: major depressive disorder Major depression recurrence: single episode Active/Remission status: currently active Major depression episode severity: severe Psychotic features: without psychotic features Qualified Codes: F32.2 - Major depressive disorder, single episode, severe without psychotic features
[2016-10-31] MEDS: IBUPROFEN 800 MG TAB PO PRN ×2 (12:39→20:58)
[2016-10-31] MEDS: GABAPENTIN 300 MG CAP PO SCH ×2 (14:22→21:21)
[2016-10-31] MEDS: CLONIDINE HCL 0.1 MG TAB PO PRN (17:07)
[2016-10-31] MEDS: PRAZOSIN HCL 1 MG CAP PO SCH (21:21)
[2016-10-31 23:38] LABS: HYDROXYETHYLFLURAZEPAM CONF NEGATIVE NG/ML (CUTOFF=50); HYDROXYMIDAZOLAM NEGATIVE NG/ML (CUTOFF=50); HYDROXYTRIAZOLAM CONF NEGATIVE NG/ML (CUTOFF=50); TEMAZEPAM CONF >2000 NG/ML (CUTOFF=50)
[2016-11-01] MEDS ORDERED: GABAPENTIN 600 MG TAB PO SCH (06:00)
[2016-11-01] MEDS: PANTOprazole SOD 40 MG TAB PO SCH (08:11)
[2016-11-01] MEDS: GABAPENTIN 300 MG CAP PO SCH ×3 (08:11→21:13)
[2016-11-01] MEDS: CLONAZEPAM 1 MG TAB PO SCH ×2 (08:11→21:13)
[2016-11-01 08:14] VITALS: BP 122/84; PULSE 68; TEMP 36.6
[2016-11-01] MEDS: FLUOXETINE HCL 20 MG CAP PO SCH (08:38)
[2016-11-01] MEDS: IBUPROFEN 800 MG TAB PO PRN ×2 (10:19→17:27)
--- NOTE | 2016-11-01 11:38 | Psychiatric Progress Notes ---
Progress Note Date of Service November 01, 2016. Interval History 30 yo male admitted voluntarily on 10/28/16 with depression, anxiety and suicidal ideation in the context of chronic mental illness and substance abuse Chief Complaint "I feel good today". Subjective Patient was seen & assessed interval progress reviewed with Treatment Team. The patient says that he had good sleep with the prazosin last night, without nightmares. He denies chills or other physical complaints. his mood is "very good" and is looking forward to going home, denying SI. he has been a good group participant and has been social with his peers. Anxiety is denies today and believes that neurontin to be helping. He would like to go home today because its more convenient for his , but agrees to stay so that all aftercare plans can be scheduled. Review of Systems Constitutional: No chills, No fatigue, No fever, No problem reported, No sweats , No weakness, No weight loss ENT: No dental problems, No hearing loss, No nasal symptoms, No problem reported, No sore throat, No tinnitus, No trouble swallowing, No unusual epistaxis Respiratory: No cough, No dyspnea at rest, No dyspnea on exertion, No hemoptysis, No problem reported, No shortness of breath, No sputum, No wheezing Cardiovascular: No PND, No chest pain, No claudication, No edema, No orthopnea , No palpitations, No problem reported Abdomen: No GI bleeding, No constipation, No diarrhea, No nausea, No pain, No problem reported, No vomiting Musculoskeletal: No calf pain, No joint pain, No muscle pain, No problem reported, No swelling Neurologic: No balance problems, No memory loss, No numbness/tingling, No paralysis, No problem reported, No vertigo, No weakness Psychiatric: No anhedonism, No anxiety, No depression symptoms, No insomnia, No problem reported, No substance abuse Integumentary: No bleeding, No color change, No itch, No new/changing skin lesions, No problem reported, No rash Sleep Information Total Hours of Sleep: 6.00 Meal Information Percent of Breakfast Consumed: 100 Percent of Lunch Consumed: 60 Percent of Dinner Consumed: 100 Mental Status Exam During interview pt is: alert and oriented, cooperative Appearance: appropriately dressed, appropriately groomed Eye contact is: good Motor behavior is: steady gait & station, no abnormal motor movements Speech: normal in rate, rhythm & volume Affect: euthymic Mood is: other ("very good") Thought process: goal directed Thought content: cognitive distortions (minimizes role of substances), reality based without delusions Suicidal thought are: denied Homicidal thoughts are: denied Hallucinations: denies auditory, denies visual Cognition: memory grossly intact, attention grossly intact, language grossly intact Intelligence estimated to be: average Insight: limited Judgement: limited Impression Doing well today, without withdrawal symptoms and denying anxiety/depression. SLept well with prazosin and BP WNL. Will DC the AWSS protocol, and prepare for discharge as early as tomorrow if we can arrange aftercare. Plan (1) Suicidal ideation Every 15 minute checks for safety Work on healthy coping skills and discharge safety plan Would advise that he not of access to controlled substances given his addictions issues, and that all medications in the home be locked Would recommend that he not drive, given his multiple presentations with altered mental status and DUI. He has a [employer] driver's license. (2) Panic disorder with agoraphobia We discussed first line treatment, which is an SSRI antidepressant, and he requested something with a low risk of sexual dysfunction, so opted for fluoxetine. Start 20 mg daily, and titrate upwards as tolerated. He had been on gabapentin as an outpatient, which is a good choice given his addictions issues. We can resume his home dose once he has completed the gabapentin withdrawal protocol. 5/5 - Continue prozac 20 mg. - Explore mindfulness techniques 5/6 - Increase Prozac to 40 mg. daily - Start neurontin 300 mg. TID for anxiety (3) Depression Start fluoxetine as above. Educate the patient about his diagnoses and the recommended treatment. Refer for outpatient psychiatric follow-up and therapy. 5 - Continue prozac - Family meeting with by phone today - Assist the patient to learn and utilize additional healthy coping strategies 5/6 - Prazosin 1 mg. HS for nightmares 5 - prazosin successful, no nightmare and had good sleep. Continue (4) Benzodiazepine dependence There are many red flags for misuse of prescription medications, including multiple arrests in criminal charges (felony possession, possession of marijuana , and a recent DUI while on prescription medications), an emergency room visit for altered mental status thought to be due to benzodiazepine intoxication, and his lack of honesty about these issues. I strongly suspect he is minimizing his substance use, but even if he is taking the diazepam as prescribed, it is not a good choice for him given his DUI, episodes of altered mental status, and ongoing severe anxiety. We will therefore taper off of it while here, by decreasing to 5 mg twice a day and initiating AWSS protocol. Would recommend the patient not drive until he is tapered off of benzodiazepines and all other controlled substances. 10/29 - Continue AWSS - Cross taper to Klonopin 1 mg. BID to prevent withdrawal seizures, with intent to taper off. - Will need to coordinate with all prescribers who have been providing controlled substances due to his hx of DUI's and impairment (5) Back fracture Patient reports a history of back injury, will request records from his PCP, Dr. Eduardo Goodwin in [place], who is prescribing benzodiazepines. Nursing has are to contact his office to confirm the diazepam dose, and inform them of his admission. We will need to coordinate care with him prior to discharge. Referral for local PCP. (6) Carpal tunnel syndrome Coordinate care with Dr. Patel, the orthopedist to performed his procedure. The patient states he is planning to follow up with him, as he continues to have pain. Called his office and spoke with his nurse, who states they last prescribed hydrocodone/acetaminophen at the beginning of August. Discharge / Aftercare Planning Psychiatrist: Name: Pending Appointment Notes: calls placed to find reduced fee psychiatric services Therapist: Name: Moravian Preston Phone Number: [phone] Date of Appointment: November 03, 2016 Time of Appointment: 1030 Appointment Notes: Belem Chan PA Turkey Farmer: Name: michael Visit Code E&M Code: 96895 Inventory Assets Strengths: , employed, stable housing Risk Factors Assessment Male: Yes : Yes /single/: No Health problems: Yes Mental Health Diagnoses: Yes Substance use disorders: Yes Previous attempt: No Previous psychiatric stay: No Hopelessness: Yes Smoker: No Protective Factors Assessment : Yes Responsible for young children: No Employed: Yes Stable relationships: Yes Supportive family: No Good rapport with provider: No Data Vital Signs Last 24 Hrs: Date Time Temp Pulse Resp B/P Pulse Ox O2 Delivery O2 Flow Rate FiO2 11/01/16 08:14 36.6 68 16 122/84 10/31/16 21:08 36.9 80 16 143/94 10/31/16 16:50 102 22 145/90 10/31/16 16:08 36.6 75 18 150/99 10/31/16 13:01 36.6 78 16 145/97 Meds Administered Last 24 Hrs: Meds Administered (Past 24Hrs) Medications (Trade) Dose Ordered Sig/Humberto Route Start Time Stop Time Status Last Admin Dose Admin Gabapentin (Neurontin Tab) 600 mg Q12H PO 10/30/16 18:00 10/31/16 06:01 DC 10/31/16 06:47 600 MG Gabapentin (Neurontin Cap) 300 mg TID PO 10/31/16 14:00 11/30/16 13:59 11/01/16 08:11 300 MG Prazosin HCl (Prazosin) 1 mg HS PO 10/31/16 22:00 11/30/16 21:59 10/31/16 21:21 1 MG Fluoxetine HCl (Prozac Cap) 40 mg QAM PO 11/01/16 09:00 12/01/16 08:59 11/01/16 08:38 40 MG Lab Results Last 24 Hrs: 10/27/16 22:40 Red Blood Count 5.10, Mean Corpuscular Volume 89.0, Mean Corpuscular Hemoglobin 32.2, Mean Corpuscular Hemoglobin Concent 36.1, Mean Platelet Volume 9.3, Neutrophils (%) (Auto) 53.2, Lymphocytes (%) (Auto) 36.2, Monocytes (%) (Auto) 9.1, Eosinophils (%) (Auto) 1.1, Basophils (%) (Auto) 0.2, Neutrophils # (Auto) 3.03, Lymphocytes # (Auto) 2.06, Monocytes # (Auto) 0.52, Eosinophils # (Auto) 0.06, Basophils # (Auto) 0.01 10/27/16 22:40 Test 10/27/16 22:30 10/27/16 22:40 10/28/16 18:17 10/28/16 18:45 Urine Color DK YELLOW Urine Appearance CLEAR (CLEAR) Urine pH 5.5 (4.5-7.5) Urine Specific [place] 1.035 (1.000-1.030) Urine Protein NEG (NEG) Urine Glucose (UA) NEG (NEG) Urine Ketones TRACE (NEG) Urine Occult Blood NEG (NEG) Urine Nitrite NEG (NEG) Urine Bilirubin NEG (NEG) Urine Urobilinogen NEG (NEG) Urine Leukocyte Esterase NEG (NEG) White Blood Count 5.69 K/uL (4.8-10.8) Red Blood Count 5.10 M/uL (4.7-6.1) Hemoglobin 16.4 g/dL (14.0-18.0) Hematocrit 45.4 % (42-52) Mean Corpuscular Volume 89.0 fL (80-100) Mean Corpuscular Hemoglobin 32.2 pg (25-34) Mean Corpuscular Hemoglobin Concent 36.1 g/dl (32-36) Platelet Count 250 K/uL (130-400) Mean Platelet Volume 9.3 fL (7.4-10.4) Neutrophils (%) (Auto) 53.2 % Lymphocytes (%) (Auto) 36.2 % Monocytes (%) (Auto) 9.1 % Eosinophils (%) (Auto) 1.1 % Basophils (%) (Auto) 0.2 % Neutrophils # (Auto) 3.03 K/uL (1.4-6.5) Lymphocytes # (Auto) 2.06 K/uL (1.2-3.4) Monocytes # (Auto) 0.52 K/uL (0.11-0.59) Eosinophils # (Auto) 0.06 K/uL (0-0.5) Basophils # (Auto) 0.01 K/uL (0-0.2) RDW Standard Deviation 41.5 fL (36.4-46.3) RDW Coefficient of Variation 12.9 % (11.5-14.5) Immature Granulocyte % (Auto) 0.2 % Immature Granulocyte # (Auto) 0.01 K/uL (0.00-0.02) Anion Gap 8.0 mmol/L (3-11) Est Creatinine Clear Calc Drug Dose 70.7 ml/min Estimated GFR () 78.1 Estimated GFR (Non- 67.4 BUN/Creatinine Ratio 9.8 (10-20) Calcium Level 9.4 mg/dl (8.5-10.1) Total Bilirubin 1.0 mg/dl (0.2-1) Aspartate Amino Transf (AST/SGOT) 14 U/L (15-37) Alanine Aminotransferase (ALT/SGPT) 21 U/L (12-78) Alkaline Phosphatase 70 U/L (45-117) Total Protein 8.0 gm/dl (6.4-8.2) Albumin 5.2 gm/dl (3.4-5.0) Globulin 2.8 gm/dl (2.5-4.0) Albumin/Globulin Ratio 1.9 (0.9-2) Salicylates Level < 1.7 mg/dl (2.8-20) Acetaminophen Level 20 ug/ml (10-30) Ethyl Alcohol mg/dL < 3.0 mg/dl (0-3) Bedside Glucose 146 mg/dl (70-99) Urine Opiates Screen POS (NEG) Urine Methadone, Qualitative NEG (NEG) Urine Barbiturates NEG (NEG) Urine Phencyclidine (PCP) Level NEG (NEG) Ur Amphetamine/Methamphetamine NEG (NEG) MDMA (Ecstasy) Screen NEG (NEG) Urine Hydroxyalprazolam Confirm NEGATIVE NG/ML (CUTOFF=25) Urine Benzodiazepines Screen POS (NEG) 7-Amino Clonazepam Level NEGATIVE NG/ML (CUTOFF=25) Urine Nordiazepam Confirmation >2000 NG/ML (CUTOFF=50) Urine Hydroxyethylflurazepam Level NEGATIVE NG/ML (CUTOFF=50) Urine Lorazepam (GC/MS) NEGATIVE NG/ML (CUTOFF=50) Urine Oxazepam Confirm (GC/MS) >2000 NG/ML (CUTOFF=50) Urine Temazepam Confirmation >2000 NG/ML (CUTOFF=50) Urine Hydroxytriazolam Confirmation NEGATIVE NG/ML (CUTOFF=50) Urine Hydroxymidazolam Confirmation NEGATIVE NG/ML (CUTOFF=50) Urine Cocaine Metabolite NEG (NEG) Urine Marijuana (THC) NEG (NEG) Test 10/29/16 10:29 Thyroid Stimulating Hormone (TSH) 0.829 uIu/ml (0.300-4.500) Free Thyroxine 0.92 ng/dl (0.80-1.60) Problem Qualifiers (1) Depression: Depression Type: major depressive disorder Major depression recurrence: single episode Active/Remission status: currently active Major depression episode severity: severe Psychotic features: without psychotic features Qualified Codes: F32.2 - Major depressive disorder, single episode, severe without psychotic features
[2016-11-01] MEDS: PRAZOSIN HCL 1 MG CAP PO SCH (21:13)
[2016-11-01] MEDS: ACETAMINOPHEN 325 MG TAB PO PRN (21:41)
[2016-11-01] MEDS ORDERED: NURSING VERBAL MED ORDER ONE (22:15)
[2016-11-02 06:49] VITALS: BP_SYST 110; BP_SYST 115; BP_DIAS 74; BP_DIAS 76; PULSE 58; PULSE 62; TEMP 36.5
[2016-11-02] MEDS: GABAPENTIN 300 MG CAP PO SCH ×2 (08:16→13:35)
[2016-11-02] MEDS: CLONAZEPAM 1 MG TAB PO SCH (08:16)
[2016-11-02] MEDS: PANTOprazole SOD 40 MG TAB PO SCH (08:16)
[2016-11-02] MEDS: FLUOXETINE HCL 20 MG CAP PO SCH (08:16)
[2016-11-02] MEDS ORDERED: ARNICARE EXT PRN (09:00)
[2016-11-02] MEDS ORDERED: PRZ1 PO (09:51)
[2016-11-02] MEDS ORDERED: FLUO40CA8 PO (09:51)
[2016-11-02] MEDS ORDERED: KLN1 PO (09:51)
[2016-11-02] MEDS ORDERED: GABA-113 PO (09:51)
--- NOTE | 2016-11-02 10:01 | Discharge Instructions ---
Discharge Information Report Includes Report will include the: Discharge Instructions & Summary Admission Admission Date / Time: October 28, 2016 at 00:55 Reason for Admission: Major Depression, Recurrent; Suicidal Gestures Discharge Discharge Diagnosis / Problem: Depression, panic disorder, benzodiazepine dependence Condition at Discharge: Good Discharge Goals Goal(s): Decrease discomfort, Improve disease control, Prevent Disease Progression Activity Recommendations Activity Limitations: resume your previous activity . Instructions / Follow-Up Instructions / Follow-Up . SPECIAL CARE INSTRUCTIONS: 1. Follow through with your scheduled aftercare appointments. If unable to keep an appointment, please call to reschedule. 2. Take your medication only as prescribed. Medication should not be changed or stopped without the approval of your doctor. In the event of worsening symptoms or concerns about side effects, contact your doctor immediately. 3. Utilize new healthy coping skills, anger management skills, and stress management skills learned during your hospitalization. Journal feelings and process them with a support person. Identify stressors or situations that may result in relapse, deterioration or inappropriate behaviors and develop a plan to deal with those issues. 4. If your coping skills are ineffective and you are in crisis, contact your outpatient providers for direction. If unable to reach your providers, please call the CAN HELP LINE AT or go to the closest Emergency Room. 5. Avoid alcohol and un-prescribed drugs. 6. You have been provided with the Mental Health Advance Directives Pamphlet for your review. 7. Do not drive while under the influence of Klonopin or any other sedating medication. AFTERCARE APPOINTMENTS: * Please call your insurance company prior to your scheduled appointment to confirm your aftercare providers are covered. Take your insurance information to your appointments. . Discharge / Aftercare Planning Psychiatrist: Name: Pending Appointment Notes: calls placed to find reduced fee psychiatric services Therapist: Name Of Therapist: [facility] Phone Number: [phone] Date of Appointment: November 03, 2016 Time of Appointment: 1030 Appointment Comments: Belem Chan PA Cost Control Analyst: Name: michael . Follow-Up Care Plan for Follow-Up Care: The patient has a therapy appt on 11/03 and is being referred to a psychiatrist for medication management. Current Hospital Diet Patient's current hospital diet: Regular Diet Discharge Diet Recommended Diet: Regular Diet Procedures Procedures Performed: No Pending Studies Pending Studies at Discharge: No Medical Emergencies . Who to Call and When: Medical Emergencies: For questions or emergencies related to your hospital stay, please contact the Inpatient Behavioral Health Unit at [phone]. A carpet sewer is on-call 18/01 for the Behavioral Health Unit for emergencies At any time you feel your situation is an emergency, you may also call 911 immediately. . Non-Emergent Contact Non-Emergency issues call your: Psychiatrist, Therapist Advance Directives Existing Advance Directive: No Do You Have an Existing Mental: No Existing Living Will: No Existing Power of Hand Finisher: No Advance Directives Info Given: To Pt/S.O. Advance Directives Reason: Declines as Mental Health Visit. Discharge Summary Admission HPI Per the Admitting provider: Per review of records, the patient has been seen in our ER several times since moving here in March, for syncope, AMS and pain. On 04/18/17 he was seen for AMS, had been stumbling around the house, was incoherent, having syncopal episodes and weakness, and had been seen at a local urgent care and the emergency room the day prior for the same issue. His drug screen was positive for benzodiazepines, and it was felt that he was intoxicated and recommendations were for admission, but he left the hospital. On his last 2 emergency room visits in June and 10/27/2016, he presented requesting pain medication. He then represented the following day, 10/28/2016, with suicidal ideation after he was pulled over by police, whom he said suspected he was driving under the influence. He changes his story several times about the events that occurred on the day of admission. He initially states that he had a flat tire, and that a police magistrate stopped to help him and "accused me of peeing myself and threatened to arrest me." He then stated that he had spilled some Gatorade on his pants, but that the asbestos microscopist thought that he had urinated. He said he then "dissociated, I was suicidal, I just needed it to stop." When asked to explain further, he states that he had pulled over because he spilled Gatorade on his pants and was trying to clean it up, and that a asbestos microscopist then "came up behind me, claimed I was drunk and peed my pants." He says he passed the field sobriety test, and the asbestos microscopist then called him a total truck and gave him a ride home. He is angry at the police magistrate, stating that he assumed the patient was drunk and "I don't drink at all!" He admits he was taking Valium up to 20mg a day and driving. He says officer told him that he did not catch him this time, but would catch him the next time. When he arrived home, his was there, and he "had a nervous breakdown, it was the last straw. I told my I just can't take this anymore, I work really hard and never get a break." He states that he made multiple suicidal statements, and then picked up a knife that he keeps on his bedside table "in case of a burglar" and used it to cut his lip. He says "it felt good, I like the taste of blood." His then came in the room and saw what he had done, and brought him to the emergency room. He endorses recent stressors of financial problems, not having outpatient mental health care, and says his family "doesn't believe in mental health issues." He states he has been trying to get outpatient mental health services, but has not been able to as his insurance does not cover it, but when asked how he knows this, says he never actually checked with his insurance and "just assumed." He says he makes too much money to be seen at [facility], and can't afford to pay out of pocket for mental health services. He reports a long history since age 15, with chronic worry "about everything," which interferes with his ability to function. He has had daily physical symptoms of anxiety, describes waking up with a "wave of anxiety," at times will hyperventilate, can' t catch his breath, and sweats profusely. Because of his anxiety, he says he "never feels comfortable or confidence." He doesn't feel comfortable leaving the house, so has not been able to do the things he needs to do, and says he just "lies on the couch all day reading." Versus symptoms of depression, including low mood, decreased motivation, decreased energy, and disrupted sleep. He has difficulty both falling and staying asleep, feels he only gets 15 -45 minutes of sleep at a time, and never feels rested. He enjoys exercising, hiking, biking, yoga, and horseback riding. He denies any history of symptoms consistent with endy. He does report wanting things to be neat and manager linux, and will go through "cleaning sprees," where he cleans the house from top to bottom. He denies symptoms of thought disorder. He denies that he wants to end his life, but does not feel able to go on in his current state. It is very difficult to clarify his benzodiazepine use. He initially states that he has been taking Valium 10 mg twice a day from a physician in [place] and has been on this for months, but then says that he last filled the prescription 6-7 weeks ago, which was only for a one-month supply, so it is not clear how he still has access to this medication. When asked how he still has some left, he states he took himself off of it for a while. He initially denied taking any other benzodiazepines since high school, but when asked about his emergency room visit for DUI arrest on 07/10/2016 which showed both alprazolam and diazepam in his system, he states that he was tapering from one to the other at that time. He also endorses stressors related to his legal issues, which he was not initially forthcoming about. He states he was arrested in [place] almost 2 years ago and charged with possession of controlled substance for prescription medications, which he claims he had prescriptions for, and placed on probation for which he has to wear an ankle bracelet. He initially denied any other history of arrests, and when asked about his DUI from earlier this year, became angry, insisting that it was not a DUI because he was taking prescription medications, and then demanded to leave. He was very resistant to suggestions that he may have a substance abuse problem. He specifically denied when asked if he had been using other benzodiazepines or more than what he had initially reported, and explains that he needs to be forthcoming with his substance use so that we can treat him for any potential withdrawal syndrome. Hospital Course (1) Suicidal ideation Every 15 minute checks for safety Work on healthy coping skills and discharge safety plan Would advise that he not of access to controlled substances given his addictions issues, and that all medications in the home be locked Would recommend that he not drive, given his multiple presentations with altered mental status and DUI. 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 (2) Panic disorder with agoraphobia We discussed first line treatment, which is an SSRI antidepressant, and he requested something with a low risk of sexual dysfunction, so opted for fluoxetine. Start 20 mg daily, and titrate upwards as tolerated. He had been on gabapentin as an outpatient, which is a good choice given his addictions issues. We can resume his home dose once he has completed the gabapentin withdrawal protocol. 5 - Continue prozac 20 mg. - Explore mindfulness techniques 5/6 - Increase Prozac to 40 mg. daily - Start neurontin 300 mg. TID for anxiety (3) Depression Start fluoxetine as above. Educate the patient about his diagnoses and the recommended treatment. Refer for outpatient psychiatric follow-up and therapy. 10/29 - Continue prozac - Family meeting with by phone today - Assist the patient to learn and utilize additional healthy coping strategies 10/31 - Prazosin 1 mg. HS for nightmares 11/01 - prazosin successful, no nightmare and had good sleep. Continue (4) Benzodiazepine dependence There are many red flags for misuse of prescription medications, including multiple arrests in criminal charges (felony possession, possession of marijuana , and a recent DUI while on prescription medications), an emergency room visit for altered mental status thought to be due to benzodiazepine intoxication, and his lack of honesty about these issues. I strongly suspect he is minimizing his substance use, but even if he is taking the diazepam as prescribed, it is not a good choice for him given his DUI, episodes of altered mental status, and ongoing severe anxiety. We will therefore taper off of it while here, by decreasing to 5 mg twice a day and initiating AWSS protocol. Would recommend the patient not drive until he is tapered off of benzodiazepines and all other controlled substances. 10/29 - Continue AWSS - Cross taper to Klonopin 1 mg. BID to prevent withdrawal seizures, with intent to taper off. - Will need to coordinate with all prescribers who have been providing controlled substances due to his hx of DUI's and impairment (5) Back fracture Patient reports a history of back injury, will request records from his PCP, Dr. Eduardo Goodwin in [place], who is prescribing benzodiazepines. Nursing has are to contact his office to confirm the diazepam dose, and inform them of his admission. We will need to coordinate care with him prior to discharge. Referral for local PCP. (6) Carpal tunnel syndrome Coordinate care with Dr. Patel, the orthopedist to performed his procedure. The patient states he is planning to follow up with him, as he continues to have pain. Called his office and spoke with his nurse, who states they last prescribed hydrocodone/acetaminophen at the beginning of August. Risk Factors Assessment Male: Yes : Yes /single/: No Health problems: Yes Mental Health Diagnoses: Yes Substance use disorders: Yes Previous attempt: No Previous psychiatric stay: No Hopelessness: Yes Smoker: No Protective Factors Assessment : Yes Responsible for young children: No Employed: Yes Stable relationships: Yes Supportive family: No Good rapport with provider: No Day of Discharge Assessment COURSE OF HOSPITALIZATION: During the patient's 5 day stay, medications were adjusted. He was started on Prozac 40 mg daily, Neurontin 300 mg 3 times a day for anxiety, Prazosin 1 mg at bedtime for nightmares. He tolerated these medications without side effect. At the time of admission the patient had been using both benzodiazepines and opiates. He had been getting Valium from multiple prescribing sources. It was our recommendation that he be tapered off of these controlled substances and his Valium was changed to Klonopin and reduced to 1 mg twice a day. This taper should be continued as an outpatient and we recommend that he have no access to benzodiazepines moving forward. His was actively involved in his treatment, attended a family meeting. She is supportive of her , does not see that he has any issues with substances. During the first portion of his hospitalization, he continued with high anxiety and multiple withdrawal symptoms including chills, feeling somewhat confused, dysregulation vital signs. He did appear to have some opiate withdrawal symptoms as well. Contact was made with his outpatient orthopedic providers who had previously done carpal tunnel surgery. They did indicate he had called frequently for refills of narcotics and were now going to flag his chart. He experienced nightmares as well which was not uncommon even prior to admission. We added prazosin 1 mg at bedtime which was effective. His withdrawal symptoms eventually subsided and the AWSS protocol was discontinued. He was a good group participant, providing encouragement to peers. He denied any further suicidal thinking throughout his stay. DAY OF DISCHARGE ASSESSMENT: Today the patient is requesting discharge. He feels improved, ready to return home. Today is the best day he's had, vital signs are stable, and no physical complaints. He denies nightmares last night and reports a good mood today. He denies suicidal or homicidal ideation. Today he is casually and appropriately dressed and groomed. Gait and station are within normal limits. Eye contact is good. Affect is smiling. Speech is of normal rate volume and tone. Thoughts are organized, goal-directed, without evidence of thought disorder. Recent and remote memory are intact per conversation. Intelligence is estimated to be average. Insight and judgment are improved over admission. Laboratory Test 10/27/16 22:30 10/27/16 22:40 10/28/16 18:17 10/28/16 18:45 Urine Color DK YELLOW Urine Appearance CLEAR Urine pH 5.5 Urine Specific Lindsay 1.035 Urine Protein NEG Urine Glucose (UA) NEG Urine Ketones TRACE Urine Occult Blood NEG Urine Nitrite NEG Urine Bilirubin NEG Urine Urobilinogen NEG Urine Leukocyte Esterase NEG Urine Synthetic Stimulants Pending Urine Opiates Screen POS POS Urine Codeine Confirmation (GC/MS) Pending Urine Morphine Confirm (GC/MS) Pending Urine Hydrocodone Confirm (GC/MS) Pending Urine Norhydrocodone Pending Urine Noroxycodone Pending Urine Oxycodone Confirm (GC/MS) Pending Urine Oxymorphone Confirm (GC/MS) Pending Urine Methadone, Qualitative NEG NEG Urine Hydromorphone Confirm (GC/MS) Pending Urine Barbiturates NEG NEG Urine Phencyclidine (PCP) Level NEG NEG Ur Amphetamine/Methamphetamine NEG NEG MDMA (Ecstasy) Screen NEG NEG Urine Hydroxyalprazolam Confirm Pending NEGATIVE Urine Benzodiazepines Screen POS POS 7-Amino Clonazepam Level Pending NEGATIVE Urine Nordiazepam Confirmation Pending >2000 Urine Hydroxyethylflurazepam Level Pending NEGATIVE Urine Lorazepam (GC/MS) Pending NEGATIVE Urine Oxazepam Confirm (GC/MS) Pending >2000 Urine Temazepam Confirmation Pending >2000 Urine Hydroxytriazolam Confirmation Pending NEGATIVE Urine Hydroxymidazolam Confirmation Pending NEGATIVE Urine Cocaine Metabolite NEG NEG Cannabinoids Comment Pending Urine Synthetic Cannabinoids Pending Ur Synthetic Cannabinoids Confirm Pending Urine Marijuana (THC) NEG NEG White Blood Count 5.69 Red Blood Count 5.10 Hemoglobin 16.4 Hematocrit 45.4 Mean Corpuscular Volume 89.0 Mean Corpuscular Hemoglobin 32.2 Mean Corpuscular Hemoglobin Concent 36.1 Platelet Count 250 Mean Platelet Volume 9.3 Neutrophils (%) (Auto) 53.2 Lymphocytes (%) (Auto) 36.2 Monocytes (%) (Auto) 9.1 Eosinophils (%) (Auto) 1.1 Basophils (%) (Auto) 0.2 Neutrophils # (Auto) 3.03 Lymphocytes # (Auto) 2.06 Monocytes # (Auto) 0.52 Eosinophils # (Auto) 0.06 Basophils # (Auto) 0.01 RDW Standard Deviation 41.5 RDW Coefficient of Variation 12.9 Immature Granulocyte % (Auto) 0.2 Immature Granulocyte # (Auto) 0.01 Sodium Level 142 Potassium Level 4.0 Chloride Level 102 Carbon Dioxide Level 32 Anion Gap 8.0 Blood Urea Nitrogen 14 Creatinine 1.40 Est Creatinine Clear Calc Drug Dose 70.7 Estimated GFR () 78.1 Estimated GFR (Non- 67.4 BUN/Creatinine Ratio 9.8 Random Glucose 71 Calcium Level 9.4 Total Bilirubin 1.0 Aspartate Amino Transferase (AST) 14 Alanine Aminotransferase (ALT) 21 Alkaline Phosphatase 70 Total Protein 8.0 Albumin 5.2 Globulin 2.8 Albumin/Globulin Ratio 1.9 Thyroid Stimulating Hormone (TSH) 8.960 Salicylates Level < 1.7 Acetaminophen Level 20 Ethyl Alcohol mg/dL < 3.0 POC Glucose 146 Test 10/29/16 10:29 Thyroid Stimulating Hormone (TSH) 0.829 Free Thyroxine 0.92 Total Time Total Time Spent (min): Greater than 30 minutes Total Time Included: examination of the patient, discharge planning, medication reconciliation, communication with other providers Tobacco Cessation at Discharge Smoking Status: Never Smoker FDA approved Prescription: non-smoker Problem Qualifiers (1) Depression: Depression Type: major depressive disorder Major depression recurrence: single episode Active/Remission status: currently active Major depression episode severity: severe Psychotic features: without psychotic features Qualified Codes: F32.2 - Major depressive disorder, single episode, severe without psychotic features
[2016-11-04 16:31] LABS: COD UR NEGATIVE NG/ML (CUTOFF=50); HYDROCOD UR >20000 NG/ML (CUTOFF=50); HYDROMOR UR 211 NG/ML (CUTOFF=50); HYDROXYETHYLFLURAZEPAM CONF NEGATIVE NG/ML (CUTOFF=50); HYDROXYMIDAZOLAM NEGATIVE NG/ML (CUTOFF=50); HYDROXYTRIAZOLAM CONF NEGATIVE NG/ML (CUTOFF=50); MORPHINE UR NEGATIVE NG/ML (CUTOFF=50); NORHYDROCODONE CONF UR >20000 NG/ML (CUTOFF=50); OXYMORPH UR NEGATIVE NG/ML (CUTOFF=50); SYNTHETIC CANNABINOIDS CONF UR NEGATIVE; SYNTHETIC CANNABINOIDS QL URIN NEGATIVE CONFIRMED (Negative); TEMAZEPAM CONF >2000 NG/ML (CUTOFF=50)
== END 2016-11-02 13:50 | disposition home or self-care (01) | DRG 885 ==
LOC: C.EDB 22:04 → C.MHU 10-28 00:55
PROVIDERS: ADMIT Psychiatry & Neurology Child & Adolescent Psychiatry; ATTEND Psychiatry & Neurology Psychiatry
DX: F33.2 Major depressive disorder, recurrent severe without psychotic features (principal); R45.851 Suicidal ideations; F13.20 Sedative, hypnotic or anxiolytic dependence, uncomplicated; G56.00 Carpal tunnel syndrome, unspecified upper limb; F40.01 Agoraphobia with panic disorder; Z87.828 Personal history of other (healed) physical injury and trauma; Z79.899 Other long term (current) drug therapy

== ENCOUNTER → 2017-03-25 | Outpatient (CLI) | payer OTHER ==
[~2017-03-25] MED LIST changes: -ACET-749 PO; +FLUO40CA8 PO; +GABA-113 PO; -GABA800T PO; -HYDR-5688 PO; -IBUP-1428 PO; +KLN1 PO; +OMEP20TA PO; -PRLSR20 PO; +PRZ1 PO
== END | disposition home or self-care (01) ==
LOC: C.LAB 17:22
DX: Z02.83 Encounter for blood-alcohol and blood-drug test (principal)